=== PATIENT | male | born 1970 | race Caucasian/White ===

== ENCOUNTER 2022-10-22 10:32 | Outpatient (CLI) | payer OTHER, SELFPAY ==
[2022-10-22 13:50] LABS: Chloride* 100 mmol/L (96-114); Sodium* 137 mmol/L (135-149)
[2022-10-22 13:51] LABS: Potassium* 4.4 mmol/L (3.6-5.1)
[2022-10-22 13:53] LABS: Creatinine* 0.7 mg/dL (0.5-1.5); Estimated Glomerular Filt Rate 112 ml/min
[2022-10-22 13:54] LABS: Blood Urea Nitrogen* 9 mg/dL (7-30); Carbon Dioxide* 29 mmol/L (20-32); Glucose* 107 mg/dL (60-115)
[2022-10-22 14:43] LABS: Vitamin B12* 476 pg/mL (243-894)
[2022-10-22 15:08] LABS: C Reactive Protein* < 0.5 mg/dL (0.5-1.0)
[2022-10-23 12:11] LABS: Alanine Aminotransferase* 21 U/L (4-50); Alkaline Phosphatase* 93 U/L (40-150); Aspartate Amino Transferase* 25 U/L (12-35)
[2022-10-23 14:26] LABS: Angiotensin Converting Enzyme 24 U/L (16-85)
[2022-10-23 14:31] LABS: Rheumatoid Factor <10 IU/mL (0-14)
[2022-10-23 22:58] LABS: Anti-Nuclear Ab(ANA)IgG ELISA None Detected (None Detected)
== END 2022-10-22 10:33 | disposition home or self-care (01) ==
PROVIDERS: Visit Provider Otolaryngology
DX: F32.A Depression, unspecified (principal)
CPT/HCPCS: 80048; 82164; 82607; 82728; 84075; 84450; 84460; 86039; 86140; 86431; 86618